=== PATIENT | female | born 1980 | race Caucasian/White ===

== ENCOUNTER 2016-07-14 19:12 | Emergency (ER) | payer OTHER | END 2016-07-14 20:46 | disposition home or self-care (01) | LOC: FER 19:12 | DX: S90.32XA Contusion of left foot, initial encounter (principal); R10.9 Unspecified abdominal pain; Z88.8 Allergy status to other drugs, medicaments and biological substances; Z91.041 Radiographic dye allergy status; Z98.890 Other specified postprocedural states; W01.0XXA Fall on same level from slipping, tripping and stumbling without subsequent striking against object, initial encounter; Y92.009 Unspecified place in unspecified non-institutional (private) residence as the place of occurrence of the external cause | CPT/HCPCS: 73630; 74000 ==

== ENCOUNTER → 2020-08-11 | Day surgery (SDC) | payer OTHER ==
[~2020-08-11] VITALS: Ht 162.6 cm; Wt 86.2 kg
[~2020-08-11] MED LIST: BACLOFEN 10MG T10 MG PO; BENTYL10 MG PO; CYMBALTA 30MG C30 MG PO; DULOXETINE HCL60 MG PO; ELMIRON100 MG PO; FLECTOR1 EACH TD; FLUOXETINE HCL60 MG PO; IMITREX50 MG PO; KLONOPIN0.5 MG PO; NEURONTIN300 MG PO; NORCO 5-325 TA1 EACH PO; OXYCONTIN 10MG10 MG PO; PERCOCET 5-3251 EACH PO; PYRIDIUM200 MG PO; VOLTAREN **OUT75 MG PO; ZOFRAN4 M1 PO; ZOFRAN4 MG PO; [UNRECOGNIZED DRUG - OTHER]
== END | disposition home or self-care (01) ==
LOC: FAS 07-22 07:00
DX: M75.02 Adhesive capsulitis of left shoulder (principal); M51.9 Unspecified thoracic, thoracolumbar and lumbosacral intervertebral disc disorder; M48.00 Spinal stenosis, site unspecified
CPT/HCPCS: 97162; 97530-GP; J0171; J0735; J1040; J1100; J2001; J2250; J2704; J2795; J7120

== ENCOUNTER 2021-05-03 09:57 | Emergency (ER) | payer OTHER ==
[2021-05-03 11:22] LABS: BASOPHIL 1.1 % (0-2); EOSINOPHIL 3.4 % (0-5); HCT 47.1 % (37.0-47.0); HGB 14.8 g/dl (12.5-16.0); LYMPHOCYTE 24.2 % (15-48); MCHC 31.4 g/dL (32.0-36.0); MONOCYTE 8.1 % (0-12); MPV 11.3 fL (6.0-9.5); NRBC 0; PLT 262 K/uL (150-400); RBC 5.29 M/uL (4.20-5.40); WBC 4.7 K/uL (4.0-10.5)
[2021-05-03 12:03] LABS: CLARITY SLIGHTLY HAZY (CLEAR); COLOR ORANGE (YELLOW)
[2021-05-03 12:09] LABS: AMORPHOUS URATES CRYSTALS TRACE; BACTERIA TRACE
[2021-05-03 12:17] LABS: ALBUMIN 4.1 g/dL (3.4-5.0); BILIRUBIN - TOTAL 0.6 mg/dL (0.2-1.0); BUN/CREAT RATIO (CALC) 9.8 RATIO; CREATININE 1.02 mg/dL (0.51-0.95); GLOBULIN (CALCULATION) 2.5 g/dL; TOTAL PROTEIN 6.6 g/dL (6.4-8.2)
[2021-05-03] MEDS ORDERED: FLAGYL500 MG PO (13:13)
[2021-05-03] MEDS ORDERED: ONDANSETRON ODT4 MG PO (13:13)
== END 2021-05-03 13:30 | disposition home or self-care (01) ==
LOC: FER 09:57
PROVIDERS: Emergency Medicine
DX: N30.10 Interstitial cystitis (chronic) without hematuria (principal); R11.2 Nausea with vomiting, unspecified; R19.7 Diarrhea, unspecified; Z88.8 Allergy status to other drugs, medicaments and biological substances; Z91.041 Radiographic dye allergy status
CPT/HCPCS: 36415; 80053; 81001; 84145; 85025; 87040; 87088; J2405; J7030; U0002

== ENCOUNTER 2021-05-23 13:46 | Emergency (ER) | payer OTHER ==
[~2021-05-23] VITALS: Ht 162.6 cm; Wt 77.1 kg
[~2021-05-23 13:46] MED LIST changes: +FLAGYL500 MG PO; +ONDANSETRON ODT4 MG PO
[2021-05-23 14:58] LABS: BILIRUBIN 2+ mg/dL (NEGATIVE); BLOOD 1+ Ery/uL (NEGATIVE); CLARITY CLEAR (CLEAR); COLOR YELLOW (YELLOW); GLUCOSE (U) NORMAL (NORMAL); LEUKOCYTES 1+ Leu/uL (NEGATIVE); NITRITE NEGATIVE (NEGATIVE); PROTEIN TRACE (LOW) mg/dL (NEGATIVE); SPECIFIC GRAVITY >=1.030 (1.001-1.030)
[2021-05-23 14:58] LABS: BASOPHIL 0.6 % (0-2); EOSINOPHIL 1.3 % (0-5); HCT 45.2 % (37.0-47.0); HGB 14.8 g/dl (12.5-16.0); LYMPHOCYTE 16.2 % (15-48); MCH 28.2 pg (25.0-31.0); MCHC 32.7 g/dL (32.0-36.0); MCV 86.3 fL (78.0-100.0); MONOCYTE 6.7 % (0-12); MPV 11.4 fL (6.0-9.5); NEUTROPHIL 74.8 % (41-80); NRBC 0; PLT 287 K/uL (150-400); RBC 5.24 M/uL (4.20-5.40); RDW 14.7 % (11.5-14.0); WBC 7.9 K/uL (4.0-10.5)
[2021-05-23 15:05] LABS: BACTERIA 4+
[2021-05-23 15:14] LABS: ALBUMIN 4.4 g/dL (3.4-5.0); BILIRUBIN - TOTAL 0.8 mg/dL (0.2-1.0); BUN/CREAT RATIO (CALC) 12.8 RATIO; CREATININE 0.86 mg/dL (0.51-0.95); GLOBULIN (CALCULATION) 3.6 g/dL; POTASSIUM 3.4 mmol/L (3.5-5.1)
[2021-05-23] MEDS ORDERED: ONDANSETRON ODT4 MG PO (23:07)
[2021-05-23] MEDS ORDERED: BACTRIM DS TAB1 EACH PO (23:07)
== END 2021-05-23 23:26 | disposition home or self-care (01) ==
LOC: FER 13:46
PROVIDERS: Emergency Medicine
DX: N39.0 Urinary tract infection, site not specified (principal); R11.2 Nausea with vomiting, unspecified; Z88.5 Allergy status to narcotic agent; Z91.041 Radiographic dye allergy status; Z28.310 Unvaccinated for COVID-19
CPT/HCPCS: 36415; 80053; 81001; 83690; 85025; J0696; J1200; J1630; J2405; J2930; J7030; Q9967

== ENCOUNTER 2021-06-03 16:51 | Emergency (ER) | payer OTHER ==
[~2021-06-03 16:51] MED LIST changes: +BACTRIM DS TAB1 EACH PO
[2021-06-03 18:11] LABS: BASOPHIL 0.7 % (0-2); BILIRUBIN 1+ mg/dL (NEGATIVE); BLOOD 1+ Ery/uL (NEGATIVE); COLOR YELLOW (YELLOW); EOSINOPHIL 1.8 % (0-5); GLUCOSE (U) NORMAL (NORMAL); HGB 14.2 g/dl (12.5-16.0); LEUKOCYTES TRACE Leu/uL (NEGATIVE); LYMPHOCYTE 19.6 % (15-48); MCH 28.6 pg (25.0-31.0); MCHC 32.3 g/dL (32.0-36.0); MCV 88.5 fL (78.0-100.0); MONOCYTE 8.2 % (0-12); MPV 11.2 fL (6.0-9.5); NEUTROPHIL 69.4 % (41-80); NITRITE NEGATIVE (NEGATIVE); NRBC 0; PLT 277 K/uL (150-400); PROTEIN TRACE (LOW) mg/dL (NEGATIVE); RBC 4.97 M/uL (4.20-5.40); RDW 15.6 % (11.5-14.0); SPECIFIC GRAVITY 1.025 (1.001-1.030); UROBILINOGEN 0.2 mg/dL (0.2-1.0); WBC 7.7 K/uL (4.0-10.5)
[2021-06-03 18:17] LABS: CLARITY SLIGHTLY HAZY (CLEAR)
[2021-06-03 18:19] LABS: BACTERIA 1+; MUCOUS TRACE
[2021-06-03 18:28] LABS: ALBUMIN 4.4 g/dL (3.4-5.0); BILIRUBIN - TOTAL 0.7 mg/dL (0.2-1.0); BUN/CREAT RATIO (CALC) 5.6 RATIO; CREATININE 1.07 mg/dL (0.51-0.95); GLOBULIN (CALCULATION) 3.6 g/dL; POTASSIUM 3.3 mmol/L (3.5-5.1)
[2021-06-03] MEDS ORDERED: REGLAN10 MG PO (23:37)
== END 2021-06-04 00:05 | disposition home or self-care (01) ==
LOC: FER 16:51
PROVIDERS: Physician Assistant
DX: R10.9 Unspecified abdominal pain (principal); R11.2 Nausea with vomiting, unspecified; Z88.5 Allergy status to narcotic agent; Z91.041 Radiographic dye allergy status; Z28.310 Unvaccinated for COVID-19
CPT/HCPCS: 36415; 71046; 80053; 81001; 83690; 85025; J2405; J2765; J7030